=== PATIENT | male | born 1985 | race Caucasian/White ===

== ENCOUNTER 2019-10-11 09:29 | Day surgery (SDC) | payer BC ==
[~2019-10-11] VITALS: Ht 177.8 cm; Wt 84.5 kg
[~2019-10-11 09:29] MED LIST: CEPH500 PO
== END 2019-10-11 11:50 | disposition home or self-care (01) ==
LOC: ORSCSDS 09:29
PROVIDERS: Internal Medicine Gastroenterology
PROC: 0DBE8ZX Excision of Large Intestine, Via Natural or Artificial Opening Endoscopic, Diagnostic (ICD-10-PCS; principal; 2019-10-11 10:45)
PROC: 0DBK8ZX Excision of Ascending Colon, Via Natural or Artificial Opening Endoscopic, Diagnostic (ICD-10-PCS; principal; 2019-10-11 10:45)
DX: K92.1 Melena (principal); D12.2 Benign neoplasm of ascending colon; R19.4 Change in bowel habit; R19.7 Diarrhea, unspecified; K64.8 Other hemorrhoids
CPT/HCPCS: 88305; J2250; J2704; J7120